=== PATIENT | female | born 1985 ===

== ENCOUNTER 2017-07-14 16:39 | Emergency (ER) | payer MEDICAID ==
[2017-07-14 16:39] VITALS: BMI 23.0
[2017-07-14 16:50] VITALS: RESP 20
[2017-07-14] MEDS ORDERED: Sodium Chloride 0.9% 1,000 ML IV STA (17:21)
[2017-07-14 17:57] LABS: BASO % 0.3 % (0.0-2.0); EOS # 0.1 K/uL (0.0-0.7); EOS % 0.5 % (0.0-4.0); HEMOGLOBIN 10.6 g/dL (11.0-16.0); LYMPH # 1.9 K/uL (1.0-4.3); LYMPH % 19.7 % (20.0-40.0); MEAN CELL VOLUME 79.5 fL (81.0-99.0); MEAN CORPUSCULAR HEMOGLOBIN 26.2 pg (27.0-31.0); MEAN CORPUSCULAR HGB CONC 32.9 g/dL (33.0-37.0); MEAN PLATELET VOLUME 8.9 fL (7.2-11.7); MONO # 1.2 K/uL (0.0-0.8); MONO % 12.1 % (0.0-10.0); NEUT # 6.5 K/uL (1.8-7.0); NEUT % 67.4 % (50.0-75.0); RBC 4.04 Mil/uL (3.80-5.20); RED CELL DISTRIBUTION WIDTH 13.9 % (11.5-14.5); WHITE BLOOD COUNT 9.6 K/uL (4.8-10.8)
[2017-07-14 18:03] LABS: SQUAMOUS EPITHIAL 17 /hpf (0-5); URINE BACTERIA MOD (<OCC); URINE BILIRUBIN NEGATIVE (NEGATIVE); URINE BLOOD 2+ (NEGATIVE); URINE CLARITY Hazy (Clear); URINE COLOR Yellow (YELLOW); URINE GLUCOSE (UA) NORMAL (Normal); URINE LEUKOCYTE ESTERASE TRACE Leu/uL (Negative); URINE PROTEIN 1+ mg/dL (NEGATIVE)
--- NOTE | 2017-07-14 18:07 | C.PDOC ---
History Of Present Illness 31 y/o female presents to the ED complaining of sore throat and fever for 3 days. States it is painful to swallow. Also reports feeling pelvic discomfort. Of note patient is currently 11 weeks . She was seen by nursing secretary but no ultrasound yet during this . Time Seen by Provider: 07/14/17 16:41 Chief Complaint (Nursing): ENT Problem History Per: Patient History/Exam Limitations: no limitations Onset/Duration Of Symptoms: Days Current Symptoms Are (Timing): Still Present Location Of Pain: Throat Past Medical History Reviewed: Historical Data, Nursing Documentation, Vital Signs Vital Signs: Last Vital Signs Temp 99.3 F 07/14/17 21:22 Pulse 74 07/14/17 21:22 Resp 20 07/14/17 21:22 BP 91/67 L 07/14/17 21:22 Pulse Ox 99 07/14/17 21:22 - Medical History PMH: No Chronic Diseases Surgical History: Cholecystectomy (2009), - [facility] Procedures REMOV INTRALUM EAR FB (08/29/14) Family History: States: Unknown Family Hx - Social History Hx Tobacco Use: Yes Hx Alcohol Use: No Hx Substance Use: No - Immunization History Hx Tetanus Toxoid Vaccination: No Hx Influenza Vaccination: No Hx Pneumococcal Vaccination: No Review Of Systems Except As Marked, All Systems Reviewed And Found Negative. Constitutional: Positive for: Fever ENT: Positive for: Throat Pain, Other (difficulty swallowing) Gastrointestinal: Negative for: Nausea, Vomiting Genitourinary: Positive for: Pelvic Pain Physical Exam - Physical Exam Appears: Non-toxic, No Acute Distress Skin: Normal Color, Warm, Dry Head: Atraumatic, Normacephalic Eye(s): bilateral: Normal Inspection, PERRL, EOMI Nose: Normal Oral Mucosa: Moist Throat: Erythema, Exudate Neck: Normal ROM Chest: Symmetrical Cardiovascular: Rhythm Regular, No Murmur Respiratory: Normal Breath Sounds, No Accessory Muscle Use, No Rales, No Rhonchi , No Wheezing Gastrointestinal/Abdominal: Soft, Tenderness (Mild suprapubic tenderness), No Guarding, No Rebound Extremity: Bilateral: Atraumatic, Normal Color And Temperature Neurological/Psych: Oriented x3, Normal Speech ED Course And Treatment - Laboratory Results Result Diagrams: 07/14/17 17:51 07/14/17 17:51 O2 Sat by Pulse Oximetry: 100 (RA) Pulse Ox Interpretation: Normal - CT Scan/US US Other Rad Studies (CT/US): Read By Radiologist, Radiology Report Reviewed CT/US Interpretation: FINDINGS: Cardiac activity: Present. Rate: 154 BPM. Measurements: [place] rump length: 6.16 cm. Gestational age based on CRL 12 weeks 4 days. Gestational age 11 weeks 4 days based on gestational sac measurement 5162 cm. Gestational age derived from LMP: 11 weeks 3 days. KERMIT based on LMP: 01/30/2018. KERMIT based on biometry: 01/25/2018. Gestational concordance documented. Yolk sac identified. Uterus: Unremarkable. Cervix: No Cervical abnormalities: Negative examination for cervical dilatation or effacement. Closed cervix measuring 3.46 cm. Subchorionic hemorrhage: None. UTERUS: 9.3 x 11.2 x 13.1 cm. ADNEXA: Right: 1.8 x 3 x 3.4 cm. Normal Doppler arterial waveform documented. Left: 1.6 x 4.5 x 2.8 cm. Normal Doppler arterial waveform documented. Fluid in the cul-de-sac: None. IMPRESSION: Twelve weeks 1 day live intrauterine gestation. Gestational concordance documented. Closed cervix 3.46 cm. Medical Decision Making Medical Decision Making: Time: 17:21 Plan: --Labs --US --Rapid strep test --Monospot --IV fluids Mineral and strep negative. Urinalysis demonstrates UTI. Patient informed of ultrasound findings, given copy of results. Will d/c patient with Keflex prescription. Disposition - Disposition Disposition: HOME/ ROUTINE Disposition Time: 21:35 Condition: STABLE Additional Instructions: Follow up with your OBGYN within 1-2 days. Return to ED if feel worse. Prescriptions: Cephalexin [cephalexin] 500 mg PO Q6 #28 cap Acetaminophen [Tylenol 325mg tab] 2 tab PO Q6 #50 tab Instructions: Urinary Tract Infections in Adults, Sore Throat in Adults Forms: [facility] (Citizen [place]) - Clinical Impression Clinical Impression: Pharyngitis, UTI (urinary tract infection) - PA / BANKING PIN ADJUSTER / Resident Statement MD/DO has reviewed & agrees with the documentation as recorded. - Scribe Statement The provider has reviewed the documentation as recorded by the Scribe (Esme Jones) All medical record entries made by the Scribe were at my direction and personally dictated by me. I have reviewed the chart and agree that the record accurately reflects my personal performance of the history, physical exam, medical decision making, and the department course for this patient. I have also personally directed, reviewed, and agree with the discharge instructions and disposition.
[2017-07-14 18:13] LABS: ALBUMIN 3.6 g/dL (3.5-5.0); ALT/SGPT 10 U/L (9-52); AST/SGOT 16 U/L (14-36); BLOOD UREA NITROGEN 10 mg/dL (7-17); CALCIUM 8.4 mg/dl (8.6-10.4); GFR AFRICAN-AMERICAN > 60; GFR NON-AFRICAN AMERICAN > 60
--- NOTE | 2017-07-14 18:33 | US ---
PROCEDURE: First trimester ultrasound HISTORY: , pelvic pain COMPARISON: None available. TECHNIQUE: Standard protocol for this study/examination. FINDINGS: LMP: 04/25/2017 Prior examinations from the current : None TECHNIQUE: Real-time 2D imaging, duplex and color Doppler. FINDINGS: Cardiac activity: Present Rate: 154 BPM Measurements: [place] rump length: 6.16 cm Gestational age based on CRL 12 weeks 4 days Gestational age 11 weeks 4 days based on gestational sac measurement 5162 cm Gestational age derived from LMP: 11 weeks 3 days KERMIT based on LMP: 01/30/2018 KERMIT based on biometry: 01/25/2018 Gestational concordance documented Yolk sac identified Uterus: Unremarkable. Cervix: No Cervical abnormalities: Negative examination for cervical dilatation or effacement. Closed cervix measuring 3.46 cm Subchorionic hemorrhage: None UTERUS: 9.3 x 11.2 x 13.1 cm. ADNEXA: Right: 1.8 x 3 x 3.4 cm. Normal Doppler arterial waveform documented. Left: 1.6 x 4.5 x 2.8 cm. Normal Doppler arterial waveform documented Fluid in the cul-de-sac: None IMPRESSION: Twelve weeks 1 day live intrauterine gestation. Gestational concordance documented. Closed cervix 3.46 cm.
[2017-07-14 21:23] VITALS: BP 91/67; PULSE 74; TEMP 99.3
[2017-07-14 21:37] VITALS: O2SAT 100
== END 2017-07-14 22:05 | disposition home or self-care (01) ==
LOC: C.ER 16:39
DX: O23.41 Unspecified infection of urinary tract in pregnancy, first trimester (principal); O26.891 Other specified pregnancy related conditions, first trimester; Z3A.11 11 weeks gestation of pregnancy
CPT/HCPCS: 76801; 80053; 81001; 84702; 85025; 86308; 87070; 87430; 87804; 96360; 99285; J7040